=== PATIENT | male | born 1990 | race Caucasian/White ===

== ENCOUNTER 2023-05-30 17:05 | Emergency (ER) | payer SELFPAY ==
--- NOTE | ~2023-05-30 | CT_ITS ---
EXAMINATION: CT abdomen pelvis wo con DATE: 05/30/2023 22:18 INDICATION: Left flank and testicular pain. TECHNIQUE: Computed tomography (CT) of the abdomen and pelvis was performed without intravenous contr ast. Automated exposure control and iterative reconstruction technique were employed. The dose-length product was 674.64 mGy-cm. COMPARISON: None. FINDINGS: The visualized portions of the lung bases are clear without pneumonia or pleural effusion. The heart size is normal. No pericardial effusion. The liver and gallbladder are normal. Calcificatio ns in the spleen are consistent with old granulomatous disease. The pancreas, adrenal glands, and kid neys are normal. There is no urolithiasis. There are no dilated loops of bowel. The appendix is eloise l. There are no pathologically enlarged lymph nodes. There is no free intraperitoneal fluid. There is mild thoracic and lumbar spondylosis. There is mild chronic height loss of multiple thoracic vertebr al bodies. IMPRESSION: 1. No urolithiasis. Reviewed, dictated and finalized at location E. [facility] C[facility]TER IMPRESSION: 1. No urolithiasis.
--- NOTE | ~2023-05-30 | US_ITS ---
EXAMINATION: US scrotum doppler DATE: 05/30/2023 18:35 INDICATION: Left testicular pain. TECHNIQUE: Grayscale and Doppler ultrasound images of the testes were obtained. COMPARISON: None. FINDINGS: The right testis measures 4.3 x 2.5 x 3.0 cm. The left testis measures 4.3 x 2.4 x 2.7 mm. There is normal vascular flow to both testes. The right epididymis is normal with normal vascular munira w. The left epididymis is normal with normal vascular flow. There is no varicocele or hydrocele. IMPRESSION: 1. Normal testes. Reviewed, dictated and finalized at location E. KETTLE RUNNER IMPRESSION: 1. Normal testes.
[2023-05-30 17:37] VITALS: BP 159/105; PULSE 108; RESP 18; TEMP 36.8; O2SAT 100
--- NOTE | 2023-05-30 22:08 | ED.MALEGU ---
HPI - Male Genitourinary General Chief complaint: Urogenital-Male Stated complaint: testicle pain Time Seen by Provider: 05/30/23 21:38 History of Present Illness HPI Narrative: 32-year-old male reports for evaluation for left testicular pain for the past 4 days. Patient states the pain is progressively get worse which is prompted to come to the ER. He states 2 days ago, his urinary stream changed and has started to spray out in a V distribution, causing him to have to sit when he urinates. he denies any recent injury or trauma to his testicle, penile discharge or lesions, concern for STDs, dysuria or hematuria, urinary frequency urgency, scrotal swelling or skin changes, fever, abdominal pain, nausea, vomiting, diarrhea. He states he had left-sided flank pain when he was having the ultrasound and now it is tender to palpation. He denies history of kidney stones. He is sexually active with his and is not concerned for STDs. patient states the scrotal pain is worse with palpation and when he is sitting. Pt admits to having insertive anal intercourse. Related Data Allergies Allergy/AdvReac Type Severity Reaction Status Date / Time morphine Allergy Unknown Hives Verified 05/30/23 21:05 Review of Systems Review of Systems: CONSTITUTIONAL: Denies fever, chills, or sweats. EYES: Denies visual changes, redness, or discharge. ENT: Denies rhinorrhea, congestion, sore throat, or otalgia. CARDIOVASCULAR: Denies chest pain, palpitations, or edema. RESPIRATORY: Denies cough or dyspnea. GASTROINTESTINAL: see HPI GENITOURINARY: See HPI SKIN: Denies rash or itching. MUSCULOSKELETAL: see HPI NEUROLOGIC: Denies headache, numbness, or weakness. PSYCHIATRIC: Denies anxiety or depression. Exam Narrative: GENERAL: Well-appearing, well-nourished, and in no acute distress. patient resting comfortably in exam bed. He is pleasant and conversational. HEAD: Normocephalic, atraumatic. EYES: PERRLA and EOMI. ENT: Nares clear, no rhinorrhea or epistaxis. Mucous membranes moist. NECK: Supple. CHEST: Clear to auscultation. No respiratory distress. HEART: Regular rate and rhythm. No murmur heard. Normal peripheral pulses. ABDOMEN: Soft, nontender, nondistended, normal active bowel sounds. No rebound, guarding or rigidity. Mild left-sided CVA tenderness without overlying skin changes. : R testicle without tenderness or overlying skin changes. L testicle with generalized tenderness, more so over the epididymis. No palpable varicocele or hydrocele. No scrotal edema or skin changes. Positive prehns sign. Cremasteric reflex intact bilaterally. EXTREMITIES: Normal range of motion. No edema. SKIN: Warm, dry, no rash. NEURO: No focal deficits. Alert and oriented x3 Course Vital Signs Vital signs: Vital Signs Temperature 98.2 F 05/30/23 17:37 Pulse Rate 108 H 05/30/23 17:37 Respiratory Rate 18 05/30/23 17:37 Blood Pressure 159/105 H 05/30/23 17:37 Pulse Oximetry 100 05/30/23 17:37 Oxygen Delivery Room Air 05/30/23 17:37 Temperature 98.2 F 05/30/23 17:37 Pulse Rate 68 05/31/23 01:39 Respiratory Rate 15 05/31/23 01:39 Blood Pressure 133/96 H 05/31/23 01:39 Pulse Oximetry 100 05/31/23 01:39 Oxygen Delivery Room Air 05/30/23 17:37 MDM - Male Genitourinary MDM Narrative Medical decision making narrative: 32-year-old male reports for evaluation for left-sided scrotal pain x4 days. See HPI for further history. Triage vitals significant for elevated blood pressure 159/105 and mild tachycardia 108, otherwise unremarkable. He is afebrile. Exam significant for mild tenderness in the left CVA area, tenderness along the left epididymis, positive Prehn sign, Cremasteric reflex intact bilaterally. he is nontoxic appearing. Scrotal ultrasound shows normal testes, normal vascular flow bilaterally. See CBC without leukocytosis. Hemoglobin is 13.2, no prior for comparison. He denies symptoms of GI
[2023-05-30 22:45] VITALS: BP 145/89; PULSE 73; RESP 18; O2SAT 100
[2023-05-30] MEDS: SODIUM CHLORIDE 0.9% IV 1,000 ML 999 ML IV CONT (22:48)
[2023-05-30] MEDS: HYDROcodone/acetaminophen (*CRX) 5-325 MG TABLET 1 TAB PO (22:48)
[2023-05-30 22:49] LABS: Basophils Percent Auto 0.3 % (0.2-1.2); Eosinophils Percent Auto 0.1 % (0-4.4); Hematocrit 41.5 % (42.0-52.0); Hemoglobin 13.2 g/dL (14.0-18.0); Immature Granulocyte Absolute 0.01 K/mm3 (0.00-0.031); Immature Granulocyte Percent A 0.1 % (0-0.5); Lymphocytes Absolute Auto 1.95 K/mm3 (0.9-3.2); Lymphocytes Percent Auto 25.8 % (18.3-44.2); Mean Corpuscular HGB Conc 31.8 g/dl (32-36); Mean Corpuscular Hemoglobin 27.4 pg (26-34); Mean Corpuscular Volume 86.3 fl (80-100); Mean Platelet Volume 8.9 fl (7.4-10.4); Monocytes Absolute Auto 0.5 K/mm3 (0.1-0.6); Neutrophils Percent Auto 66.7 % (45.5-73.1); Platelet Count Result 289 k/mm3 (150-375); Red Blood Count 4.81 M/mm3 (4.6-6.20); Red Cell Distribution Width 13.2 % (11.5-14.5); White Blood Count 7.6 K/mm3 (4.5-10.0)
[2023-05-30 23:01] LABS: Alanine Aminotransferase 20 U/L (6-50); Albumin Level 4.6 g/dL (3.5-5.1); Alkaline Phosphatase 91 U/L (38-126); Anion Gap 12 mmol/L (8-16); Aspartate Amino Transferase 24 U/L (17-59); Bilirubin,Total 0.7 mg/dL (0.2-1.3); Blood Urea Nitrogen 8 mg/dL (9-20); Calcium 9.7 mg/dL (8.4-10.2); Carbon Dioxide 25 mmol/L (22-30); Chloride 105 mmol/L (98-107); Estimated CRCL calculation 143 ml/min; Estimated Glomerular Filt Rate > 60; Glucose 110 mg/dL (65-110); Potassium 3.6 mmol/L (3.4-5.0); Sodium 142 mmol/L (137-145)
[2023-05-30 23:48] LABS: Appearance Urine Clear (Clear); Bilirubin Urine Negative (Negative); Blood Urine Negative (Negative); Color Urine Yellow (Yellow); Glucose Urine UA Negative (Negative); Ketones Urine Negative (Negative); Leukocyte Esterase Ur Negative LEU/UL (Negative); Nitrate Urine Negative (Negative); Protein Urine Negative (Negative); Specific Grav Ur 1.022 (1.001-1.035); Urobilinogen Urine 0.2 mg/dL (<2.0); pH Urine 5.5 (5.0-9.0)
[2023-05-31] MEDS: KETOROLAC 30 MG/ML VIAL (*BKC) IV PUSH (00:06)
[2023-05-31 00:22] LABS: Add Urine Microscopic? NO
[2023-05-31 00:53] LABS: Trichomonas Vag PCR NOT DETECTED (NOT DETECTE)
[2023-05-31] MEDS: cefTRIAXone 1 GM VIAL 0.5 GM IM (01:09)
[2023-05-31] MEDS: HYDROmorphone HCL INJ (*CRX) 1 MG/ML SYR IV PUSH (01:09)
[2023-05-31 01:18] LABS: Chlamydia trachomatis NOT DETECTED (NOT DETECTE); Neisseria gonorrhoeae PCR NOT DETECTED (NOT DETECTE)
[2023-05-31] MEDS: levoFLOXacin 500 MG TABLET PO (01:38)
[2023-05-31 01:39] VITALS: BP 133/96; PULSE 68; RESP 15; O2SAT 100
== END 2023-05-31 01:53 | disposition home or self-care (01) ==
PROVIDERS: Emergency Provider Physician Assistant
DX: N45.1 Epididymitis (principal)
CPT/HCPCS: 36415; 74176; 76870; 80053; 81003; 85025; 87491; 87591; 87661; 93976; 96361; 96372; 96374; 96375; 99284; A9270; J0696; J1170; J1885; J7030